=== PATIENT | male | born 1950 | race Caucasian/White ===

== ENCOUNTER 2018-11-14 09:41 | Emergency (ER) | payer OTHER ==
[~2018-11-14] VITALS: Ht 180.3 cm; Wt 74.8 kg
[2018-11-14] MEDS ORDERED: TESSALON PERLE100 MG PO (10:36)
[2018-11-14 10:44] VITALS: BP 97/64
== END 2018-11-14 10:55 | disposition home or self-care (01) ==
LOC: ER 09:41
DX: B34.9 Viral infection, unspecified (principal); Z90.5 Acquired absence of kidney